=== PATIENT | male | born 1940 | race Caucasian/White ===

== ENCOUNTER 2023-01-13 04:58 | Inpatient (IN) ==
[2023-01-13] MEDS ORDERED: Heparin DRIP 25,000 UNITS BAG 25,000 UNITS/500 ML BAG IV SCH (05:30)
[2023-01-13 05:54] LABS: Calcium 9.1 mg/dL (8.6-10.3); Creatinine, Serum 1.01 mg/dL (0.67-1.17); Magnesium 2.2 mg/dL (1.9-2.7); Potassium 4.2 mmol/L (3.5-5.0); eGFR CKD-EPI 73.8 (>60)
[2023-01-13] MEDS ORDERED: Heparin 5000 UNITS/ML 1 mL VIAL IV SCH (06:00)
[2023-01-13] MEDS ORDERED: Dextrose 50% Syringe 50 ml 25 GM/50 ML SYRINGE IV PUSH PRN (06:17)
[2023-01-13] MEDS ORDERED: Sulfur Hexaflouride MICROSPHR 25 MG VIAL ONE (08:03)
[2023-01-13 08:37] LABS: HDL Cholesterol 36.2 mg/dL
[2023-01-13] MEDS ORDERED: Empagliflozin 25 MG TAB PO SCH (09:00)
[2023-01-13] MEDS ORDERED: NS 0.9% 1000 ml BAG 1,000 ML IV SCH (09:00)
[2023-01-13] MEDS ORDERED: Insulin GLARGINE 100 un/ml 10 ml VIAL SUBCUT SCH (09:00)
[2023-01-13 10:23] LABS: Activated Partial Thrombo Time 56.6 seconds (26.0-38.0); INR 1.15 (0.83-1.13)
[2023-01-13 12:19] LABS: High Sensitivity Troponin 1 Hr 11218 pg/mL (<20)
[2023-01-13] MEDS ORDERED: Heparin 2 UNITS/ML 1000 mls 2,000 ML IV ONE (12:34)
[2023-01-13] MEDS ORDERED: Lidocaine 1% MPF 5 ML VIAL ONE (12:35)
[2023-01-13] MEDS ORDERED: Iohexol 350 (CONTRAST) 200 ML MDV IV ONE (12:35)
[2023-01-13] MEDS ORDERED: niCARdipine 0.1MG/ML IVPREMIX 20 MG/200 ML BAG IV ONE (12:35)
[2023-01-13] MEDS ORDERED: nitroGLYCERIN DRIP 25,000 MCG/250 ML BTL ONE (12:42)
[2023-01-13] MEDS ORDERED: fentaNYL 100 mcg/2 ml 50 MCG/ML VIAL IV SLOW PU ONE (12:43)
[2023-01-13] MEDS ORDERED: Midazolam 10 mg/10 ml VIAL 1 mg/ml 10 ml VIAL (10 mg) IV SLOW PU ONE (12:43)
[2023-01-13] MEDS ORDERED: Naloxone 0.4 mg VIAL 0.4 mg/ml 1 ml VIAL IV PUSH PRN (12:43)
[2023-01-13] MEDS ORDERED: Flumazenil 0.5 mg/5 ml 0.1 MG/ML 5 ml VIAL IV PRN (12:43)
[2023-01-13] MEDS ORDERED: Midazolam 5 mg/5 ml VIAL 1 mg/ml 5 ml VIAL (5 mg) ONE (12:57)
[2023-01-13] MEDS ORDERED: fentaNYL 100 mcg/2 ml 50 MCG/ML VIAL ONE (12:57)
[2023-01-13] MEDS ORDERED: Heparin 1,000 UNIT/ML 10 ml (10,000 UNITS) CATHLAB/DIALYSIS ONE (12:57)
[2023-01-13] MEDS ORDERED: Heparin 2 UNITS/ML 1000 mls 1,000 ML IV ONE (13:18)
[2023-01-13] MEDS ORDERED: Atropine 0.1 MG/ML 10 ml SYR (1 mg) ONE (13:18)
[2023-01-14 00:37] VITALS: BP 110/44
== END 2023-01-13 21:53 | disposition short-term general hospital (02) | DRG 282 ==
LOC: ED 04:58 → SUATTDRO 06:36 → EDHOLD 06:36 → MEDTELE 11:39
PROVIDERS: ADMIT Student in an Organized Health Care Education/Training Program; ATTEND Internal Medicine